=== PATIENT | male | born 1985 | race Caucasian/White ===

== ENCOUNTER 2022-02-11 07:00 | Day surgery (SDC) | payer OTHER ==
[~2022-02-11] VITALS: Ht 177.8 cm; Wt 111.4 kg
[~2022-02-11 07:00] MED LIST: METHIMAZOLE10 MG PO
--- NOTE | 2022-02-11 08:37 | NUR ---
PT ALERT, ORIENTED AND HOLDING HIS SLEEPING 1 MONTH OLD DAUGHTER WITH HIS AT BS. PT SEEMS PREPARED, ALL QUESTIONS ASKED ANSWERED. SPOUSE WITH REMAIN FOR DC. PT DECLINED PRAYER, GAVE BLESSING. WILL FOLLOW NEEDED
--- NOTE | 2022-02-11 09:46 | NUR ---
02/11/22 0946 Janey La PATIENT ARRIVES IN PACU TALKING, HIS EYES ARE OPEN AND HE REASSURES EASILY.
[2022-02-11] MEDS ORDERED: IBUPROFEN600 MG PO (09:56)
[2022-02-11] MEDS ORDERED: HYDROCODON-ACE1 EA10 PO (09:56)
[2022-02-11] MEDS ORDERED: ACETAMINOPHEN500 MG PO (09:56)
--- NOTE | 2022-02-11 14:15 | OR ---
[facility] [address] [place], [place] [address] Signed DATE OF OPERATION: 02/11/2022 SURGEON: Anitha Cyr MD PREOPERATIVE DIAGNOSIS: Deep subcutaneous mass of right superior anterior chest wall (periclavicular area). POSTOPERATIVE DIAGNOSIS: Deep subcutaneous mass of right superior anterior chest wall (periclavicular area); mixed solid cystic nodule. PROCEDURE: Excision of right anterior superior chest wall subcutaneous mass. ANESTHESIA: Local with monitored anesthesia care (Jeb Gonzales GALLERY OR MUSEUM TECHNICIAN. INDICATION: This 36-year-old white man is a patient of and was referred to RAGINI Oconnor of [facility] with a nodule of the skin in the region of the right clavicle. It is in the superior aspect in the mid clavicular area. The nodule is multilobulated and in the deep subcutaneous space with an even larger component there. Excision has been recommended based on the uncertain behavior of the lesion. It has never shown sign of inflammation, drainage, infection, or other issue. There is no regional adenopathy. He is admitted to undergo excision of the mass, understand the risks of bleeding, infection, cosmetic deformity, need for additional treatment should malignancy be identified, and other unforeseen complications. FINDINGS: The lesion appeared to be multi-cystic and mixed cystic solid. Complete excision was undertaken without rupture of the lesion. It is dominantly a subcutaneous mass. Elliptical excision included portion of skin over the mass and all of the subcutaneous components of the mass. The wound was closed in layers with good results. PROCEDURE: The patient was brought to the operating room, placed in supine position, given intravenous sedation. Preoperative antibiotic Ancef was given. The right chest was prepared with a chlorhexidine solution and draped sterilely. Marcaine with epinephrine injected in a field block configuration. An elliptical incision was made transversely not far from the right clavicle in the midportion. Dissection was carried Electronically Signed By: ANITHA CYR MD 02/11/22 1415 PATIENT NAME: DC KIDD OPERATIVE REPORT DATE OF : 85 REPORT #: [id number] PHYSICIAN: ANITHA CYR MD PCP: NANCI MOHAMUD NP REPORT IS CONFIDENTIAL AND NOT TO BE RELEASED WITHOUT AUTHORIZATION [facility] [address] [place] [id number] Signed through the dermis with sharp dissection using the 15 blade. Essentially all the dissection was undertaken sharply. The excision extended down to the pectoral fascia. Complete excision was undertaken. Electrocautery was used for hemostasis. The wound was closed with interrupted 2-0 Vicryl in deep dermal layer and running subcuticular 3-0 Vicryl for the skin. Steri-Strips were applied as was Acticoat dressing. BLOOD LOSS: Minimal. COMPLICATIONS: None. MD TYLER Hernandez/KIKI /[id number] cc: RAGINI Oconnor of [facility]. Copies: ~ Electronically Signed By: ANITHA CYR MD 02/11/22 1415 PATIENT NAME: DC KIDD OPERATIVE REPORT DATE OF : 85 REPORT #: [id number] PHYSICIAN: ANITHA CYR MD PCP: NANCI MOHAMUD NP REPORT IS CONFIDENTIAL AND NOT TO BE RELEASED WITHOUT AUTHORIZATION
--- NOTE | 2022-02-11 17:10 | NUR ---
0955-ADVISED DR. CYR PATIENT DIDNT RECEIVE HEPARIN BEFORE SURGERY. DR. CYR SAID OK AND STATES PATIENT HAD A MAC NOT A GENERAL.
--- NOTE | 2022-02-28 09:40 | PATH ---
[facility] [address] [place], [place] [address] Signed SPECIMEN(S): A RIGHT ANTERIOR CHEST WALL MASS SPECIMEN SOURCE: A. 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 COMMENT: AE1/AE3 and MARGARET immunohistochemical stains are positive. The morphologic features of this dermal lesion and immunohistochemical stains are consistent with those present in nodular hidradenoma. There is no evidence of atypia or malignancy present in these sections. Control slides stained appropriately positive. TWK:[facility]:C2NR MICROSCOPIC EXAMINATION: Histologic sections of all submitted blocks are examined by light microscopy. These findings, together with the gross examination, support the pathologic diagnosis. GROSS DESCRIPTION: The specimen, labeled "DW, right anterior chest wall mass," is received in formalin and consists of one unoriented skin ellipse that measures 2.8 x 2.5 cm with an attached pink-simons, soft, fluctuating subcutaneous nodule that measure 2.5 cm in greatest dimension. The skin surface shows pink-simons nodule that measures 1.0 cm in diameter. Specimen is inked. Sectioning through the specimen reveals a cyst that measures 2.2 cm in greatest dimension. The cyst is filled with yellow translucent fluid. Mapping Technician sections are submitted in cassettes (A1-A2). JS (under the direct supervision of a pathologist) The Gross Description was prepared using a voice recognition system. The report was reviewed for accuracy; however, sound-alike word errors, addition and/or deletions may occur. If there is any question about this report, please contact Client Services. PATIENT NAME: DC KIDD JR PATHOLOGY DATE OF : 85 REPORT #: [id number] PHYSICIAN: FAUSTINA FULLER PCP: NANCI MOHAMUD NP REPORT IS CONFIDENTIAL AND NOT TO BE RELEASED WITHOUT AUTHORIZATION [facility] [address] [place], [place] [address] Signed ADDITIONAL NOTES: Immunohistochemical and/or in situ hybridization studies were performed on this case with the appropriate positive controls that react as expected. This test was developed and its performance characteristics determined by [facility]. It has not been cleared or approved by the U.S. Food and Drug Administration. The FDA has determined that such clearance or approval is not necessary. This test is used for clinical purposes. It should not be regarded as investigational or for research. [facility] is certified under the Clinical Laboratory Improvement Amendments of 1988 (CLIA) as qualified to perform high complexity clinical laboratory testing. This assay has not been validated for specimens that have been decalcified. PERFORMING LABORATORY: The technical component was performed by [facility], [address] [place] [id number] (CLIA# [id number]). The professional interpretation was performed by [facility], [facility], [address] [place] [address] (CLIA#: [id number]). Diagnostician: Donnie Trevino MD Pathologist Electronically Signed 02/28/2022 Copies: ~ PATIENT NAME: DC KIDD PATHOLOGY DATE OF : 85 REPORT #: [id number] PHYSICIAN: FAUSTINA PATHOLOGY PCP: NANCI MOHAMUD NP REPORT IS CONFIDENTIAL AND NOT TO BE RELEASED WITHOUT AUTHORIZATION
== END 2022-02-11 10:15 | disposition home or self-care (01) ==
LOC: DS 07:00
PROVIDERS: ATTEND Surgery
DX: D23.5 Other benign neoplasm of skin of trunk (principal); E05.90 Thyrotoxicosis, unspecified without thyrotoxic crisis or storm; Z72.0 Tobacco use
CPT/HCPCS: 00300; 88305; 88341; 88342; J0690; J2001; J2405; J2704; J3010; J7121

== ENCOUNTER 2022-03-18 07:45 | Emergency (ER) | payer OTHER ==
[~2022-03-18] VITALS: Ht 177.8 cm; Wt 112.9 kg
[~2022-03-18 07:45] MED LIST changes: +ACETAMINOPHEN500 MG PO; +HYDROCODON-ACE1 EA10 PO; +IBUPROFEN600 MG PO
== END 2022-03-18 10:07 | disposition home or self-care (01) ==
LOC: ED 07:45
DX: R07.89 Other chest pain (principal); Z79.899 Other long term (current) drug therapy
CPT/HCPCS: 71046; 81001; 99285-25